=== PATIENT | female | born 1985 | race Caucasian/White ===

== ENCOUNTER 2017-02-25 06:47 | Emergency (ER) | payer MEDICAID ==
[2017-02-25] MEDS ORDERED: NACL 0.9% 1000 ML 1,000 ML IV ONE ×2 (07:02→11:05)
[2017-02-25 07:37] LABS: Basophils % (Auto) 0.6 % (0.0-1.8); Eosinophils % (Auto) 2.2 % (0.0-4.3); Hematocrit 39.9 % (30.3-42.9); Hemoglobin 13.5 gm/dl (10.1-14.3); Mean Corpuscular HGB Conc 34 % (30-34); Mean Corpuscular Hemoglobin 30 pg (28-32); Mean Corpuscular Volume 90 fl (79-97); Platelet Count 177 K/mm3 (140-440); Red Blood Count 4.44 M/mm3 (3.65-5.03); Red Cell Distribution Width 12.2 % (13.2-15.2)
[2017-02-25 07:47] LABS: INR 0.96 (0.87-1.13)
[2017-02-25 07:48] LABS: Partial Thromboplastin Time 26.9 Sec. (24.2-36.6)
[2017-02-25 07:57] LABS: Alanine Aminotransferase 11 units/L (7-56); Albumin 3.7 g/dL (3.9-5); Albumin/Globulin Ratio 1.1 %; Alkaline Phosphatase 77 units/L (35-129); Anion Gap 16 mmol/L; Blood Urea Nitrogen 10 mg/dL (7-17); Calcium 9.1 mg/dL (8.4-10.2); Carbon Dioxide 26 mmol/L (22-30); Chloride 100.4 mmol/L (98-107); Glucose 79 mg/dL (65-100); Lipase 35 units/L (13-60); Sodium 137 mmol/L (137-145); Total Protein 7.2 g/dL (6.3-8.2)
[2017-02-25] MEDS ORDERED: PROTONIX IV ONE (11:05)
--- NOTE | 2017-02-25 11:27 | Emergency Department Report ---
HPI - General Chief Complaint: GI Bleed Time Seen by Provider: 02/25/17 09:57 - HPI HPI: This is a 31-year-old Afro-[place] female who presents to the emergency department, dropped off by her sister, with complaint of a 2 day history of nausea and vomiting and some hematemesis. Patient's that she had a 15 minute period Thursday night where she was having profuse vomiting and then at the end of that vomited up some jellylike red emesis. She had continued nausea and the next day but only one episode of vomiting but said that it also appeared to have some blood-tinged emesis. Now she is having intense lower abdominal cramping. Her last menstrual cycle was between February 11 in February 15. She is not taken anything for symptoms prior to presentation. She has a past medical history of asthma, hypertension. No recent travel or sick contacts at home. She does not have a primary care doctor. ED Past Medical Hx - Past Medical History Previous Medical History?: Yes Hx Hypertension: Yes Hx Asthma: Yes - Surgical History Past Surgical History?: Yes Additional Surgical History: Leep. Csecection x1 - Social History Smoking Status: Current Every Day Smoker Substance Use Type: Alcohol - Medications Home Medications: Home Medications Medication Instructions Recorded Confirmed Last Taken Type HYDROcodone/APAP 5-325 [[place] 1 each PO Q6HR PRN #8 tablet 02/25/17 Unknown Rx 5/325] Omeprazole Magnesium [PriLOSEC Otc] 20 mg PO QDAY #20 tablet. 02/25/17 Unknown Rx Ondansetron [Zofran Odt] 4 mg PO Q8H PRN #10 tab.darell 02/25/17 Unknown Rx ED Review of Systems ROS: Stated complaint: EMESIS/CHEST PAIN Other details as noted in HPI Comment: All other systems reviewed and negative Constitutional: denies: chills, fever Eyes: denies: eye pain, eye discharge, vision change ENT: denies: ear pain, throat pain Respiratory: denies: cough, shortness of breath, wheezing Cardiovascular: denies: chest pain, palpitations Gastrointestinal: abdominal pain, nausea, vomiting, hematemesis Genitourinary: denies: urgency, dysuria, discharge Musculoskeletal: denies: back pain, joint swelling, arthralgia Skin: denies: rash, lesions Neurological: denies: headache, weakness, paresthesias Physical Exam - Physical Exam Vital Signs: Vital Signs 02/25/17 06:56 Temperature 97.8 F Pulse Rate 72 Respiratory 18 Rate Blood Pressure 135/82 O2 Sat by Pulse 98 Oximetry Physical Exam: GENERAL: The patient is well-developed well-nourished. HEENT: Normocephalic. Atraumatic. Extraocular motions are intact. Patient has moist mucous membranes. Pupils equal reactive to light bilaterally. NECK: Supple. Trachea is midline. CHEST/LUNGS: Clear to auscultation. There is no respiratory distress noted. HEART/CARDIOVASCULAR: Regular. There is no tachycardia. There is no gallop rub or murmur. ABDOMEN: Abdomen is soft, nontender. Patient has normal bowel sounds. There is no abdominal distention. Obese habitus. SKIN: Skin is warm and dry. NEURO: The patient is awake, alert, and oriented. The patient is cooperative. The patient has no focal neurologic deficits. The patient has normal speech. MUSCULOSKELETAL: There is no tenderness or deformity. There is no limitation range of motion. There is no evidence of acute injury. ED Course Vital Signs 02/25/17 06:56 Temperature 97.8 F Pulse Rate 72 Respiratory 18 Rate Blood Pressure 135/82 O2 Sat by Pulse 98 Oximetry ED Medical Decision Making - Lab Data Result diagrams: 02/25/17 07:14 02/25/17 07:14 - EKG Data -: EKG Interpreted by Me EKG shows normal: sinus rhythm, axis, intervals, QRS complexes, ST-T waves Rate: normal - EKG Data When compared to previous EKG there are: previous EKG unavailable Interpretation: normal EKG - Medical Decision Making 31-year-old female presents emergency Department with a complaint of some nausea , vomiting and hematemesis. There is been no further vomiting or hematemesis while in the emergency department. If her she complained of some chest discomfort but it really was more of some abdominal pain and some soreness from heaving and/or vomiting. However she had a EKG that did not show any signs of ST elevation [place], ischemia or dysrhythmia. Labs are unremarkable including stable hemoglobin, negative troponins 2, normal belly labs. Patient is not and there is no urinary tract infection. She was given some IV fluid, pain medication, PPI. She was reevaluated multiple times for multiple hours and has remained stable. Vital stable throughout her ED course. She'll be discharged home to follow-up with her primary care physician and will need to see gastroenterology as she may need endoscopy in the future. She will return to the ER with any worsening of her symptoms or any acute distress. - Differential Diagnosis esophageal tear, gastritis, GERD, [place] Critical Care Time: No Critical care attestation.: If time is entered above; I have spent that time in minutes in the direct care of this critically ill patient, excluding procedure time. ED Disposition Clinical Impression: Abdominal pain Qualifiers: Abdominal location: lower abdomen, unspecified Qualified Code(s): R10.30 - Lower abdominal pain, unspecified Hematemesis Qualifiers: Nausea presence: unspecified Qualified Code(s): K92.0 - Hematemesis Disposition: TO HOME OR SELFCARE Is pt being admited?: No Condition: Stable Instructions: Acute Nausea and Vomiting (ED), Gastrointestinal Bleeding (ED), Abdominal Pain (ED) Additional Instructions: Please follow-up with your primary care physician in the next few days. I've given a referral for a local gastroenterology group, [facility] and Dr. Marie. Return to the emergency department with any worsening of your symptoms or any acute distress. Stay with from anti-inflammatory such as ibuprofen, Aleve, Motrin, naproxen, aspirin. You've been prescribed a medication that is sedating. Therefore this medication cannot be mixed with alcohol, or taken prior to driving, working, or being responsible for children. Prescriptions: HYDROcodone/APAP 5-325 [[place] 5/325] 1 each PO Q6HR PRN #8 tablet PRN Reason: Pain Omeprazole Magnesium [PriLOSEC Otc] 20 mg PO QDAY #20 tablet. Ondansetron [Zofran Odt] 4 mg PO Q8H PRN #10 tab.rapdis PRN Reason: Nausea Referrals: PRIMARY CARE, [Primary Care Provider] - 3-5 Days MICHAEL SHAH MD [Staff Physician] - 3-5 Days LISA MARIE MD [Staff Physician] - 3-5 Days Forms: Accompanied Note Time of Disposition: 14:28
[2017-02-25] MEDS ORDERED: MORPHINE ONE (11:33)
[2017-02-25] MEDS ORDERED: MORPHINE IV ONE (11:39)
[2017-02-25 12:10] VITALS: BP 127/70
[2017-02-25 14:22] LABS: Bacteria,Urine 3+ /HPF (Negative); Bilirubin,Urine NEG (Negative); Blood,Urine SM (Negative); Ketones,Urine NEG (Negative); Leukocyte Esterase,Urine NEG (Negative); Mucus,Urine FEW /HPF; Nitrite,Urine NEG (Negative); Protein,Urine <15 mg/dL mg/dL (Negative); Urobilinogen,Urine < 2.0 mg/dL (<2.0)
== END 2017-02-25 14:54 | disposition home or self-care (01) ==
LOC: ED 06:47
DX: R10.30 Lower abdominal pain, unspecified (principal); K92.0 Hematemesis; I10 Essential (primary) hypertension; J45.909 Unspecified asthma, uncomplicated; F17.200 Nicotine dependence, unspecified, uncomplicated
CPT/HCPCS: 36415; 80053; 81001; 81025; 83690; 84484; 84703; 85025; 85610; 85730; 86850; 86900; 86901; 93005; 93010; 96361; 96374; 96375; 99284; C9113; J2270; J7030